=== PATIENT | male | born 1935 | race Caucasian/White ===

== ENCOUNTER → 2020-07-08 | Outpatient (CLI) | payer MEDICARE ==
[~2020-07-08] MED LIST: ALBU2.5V2 IH; ASPI-1197 PO; CALC600T15 PO; CHOL500051 PO; FLUT1DIS5 IH; HYLANDS LEG CRAMPS PO; IPRNEB IH; LACT1CAP83 PO; LEVO112T4 PO; LISI-613 PO; SIMV-43 PO; TRAM-355 PO; VITA150T PO
== END | disposition home or self-care (01) ==
LOC: RAH 11:59
PROVIDERS: ATTEND Neurological Surgery
DX: S06.5X9A Traumatic subdural hemorrhage with loss of consciousness of unspecified duration, initial encounter (principal); G91.9 Hydrocephalus, unspecified; X58.XXXA Exposure to other specified factors, initial encounter; Y93.89 Activity, other specified; Y92.89 Other specified places as the place of occurrence of the external cause; Y99.8 Other external cause status; Z98.890 Other specified postprocedural states
CPT/HCPCS: 70450